=== PATIENT | male | born 1995 | race American Indian/Alaskan Native ===

== ENCOUNTER 2020-10-16 06:12 | Emergency (ER) | payer SELFPAY ==
[2020-10-16 06:53] VITALS: BP 141/83
--- NOTE | 2020-10-16 06:56 | Event Note ---
ED Screening Note Date of service: 10/16/20 Time: 06:55 ED Screening Note: Patient 25-year-old -[place] male with history of schizophrenia, states out of medication, denies SI or HI. This initial assessment/diagnostic orders/clinical plan/treatment(s) is/are subject to change based on patients health status, clinical progression and re- assessment by fellow clinical providers in the ED. Further treatment and workup at subsequent clinical providers discretion. Patient/guardian urged not to elope from the ED as their condition may be serious if not clinically assessed and managed. Initial orders include: ed psych , psych consult, uds, ua, bmp, cbc,
[2020-10-16 07:27] LABS: Basophils # (Auto) 0.1 K/mm3 (0.0-0.1); Basophils % (Auto) 1.1 % (0.0-1.8); Eosinophils % (Auto) 0.6 % (0.0-4.3); Lymphocytes # (Auto) 2.6 K/mm3 (1.2-5.4); Lymphocytes % (Auto) 38.2 % (13.4-35.0); Mean Corpuscular HGB Conc 36 % (32-34); Mean Corpuscular Volume 88 fl (84-94); Monocytes # (Auto) 0.4 K/mm3 (0.0-0.8); Monocytes % (Auto) 6.4 % (0.0-7.3); Platelet Count 263 K/mm3 (140-440); Red Blood Count 4.63 M/mm3 (3.65-5.03); Red Cell Distribution Width 13.3 % (13.2-15.2)
[2020-10-16 07:35] LABS: BUN/Creatinine Ratio 14; Blood Urea Nitrogen 17 mg/dL (9-20); Calcium 9.4 mg/dL (8.4-10.2); Hemolysis Index 4
[2020-10-16 08:01] LABS: Hematocrit 40.7 % (35.5-45.6); Hemoglobin 14.8 gm/dl (11.8-15.2)
--- NOTE | 2020-10-16 09:42 | Consultation ---
History of Present Illness - Reason for Consult Consult date: 10/16/20 Reason for consult: MHE Requesting physician: NICKY ASKEW - History of Present Psychiatric Illness Per ED Provider: Patient 25-year-old -[place] male with history of schizophrenia, states out of medication, denies SI or HI. This initial assessment/diagnostic orders/clinical plan/treatment(s) is/are subject to change based on patients health status, clinical progression and re- assessment by fellow clinical providers in the ED. Further treatment and workup at subsequent clinical providers discretion. Patient/guardian urged not to elope from the ED as their condition may be serious if not clinically assessed and managed. PSYCH HPI Patient describes a good and stable mood, denies being depressed or excessively nervous. Patient eats and sleeps well. Patient denies panic attacks, recurrent nightmares or flashbacks. Patient denies symptoms suggestive of OCD or PTSD. Patient denies hallucinations, paranoia, thought interference and no features suggestive of hypomania or susan. Patiently completely denies suicidal or homi cidal thoughts. PAST PSYCHIATRIC HISTORY Diagnoses: Suicide attempts or Self-harm behavior: Prior psychiatric hospitalizations: Substance Abuse history: Previous psychiatric medications tried: Outpatient treatment: PAST MEDICAL HISTORY: Family Psychiatric History: None reported or documented SOCIAL HISTORY Marital Status: Living Arrangements: Employment Status: Access to guns/weapons: Education: History of Abuse: Legal History: REVIEW OF SYSTEMS ROS cannot be reliably obtained from the patient due to her confusion and somnolence. REVIEW OF SYSTEMS Constitutional: Negative for weight loss ENT: Negative for stridor Respiratory: Negative for cough or hemoptysis All other systems reviewed and are negative MENTAL STATUS EXAMINATION General Appearance and Behavior: Age appropriate, poor/fair/good hygiene, wearing appropriate clothes, lying in bed, good/poor eye contact, cooperative/ uncooperative polite/irritable with questioning. Cooperation: Participating/engaged, Withdrawn, Isolative, Threatening, Cooperative, Hostile and Guarded Psychomotor Behavior: Psychomotor agitation, psychomotor retardation, unremarkable and within normal limits Mood: Good, OK, Anxious, Depressed, Great, I don't know and so-so Affect and affective range: Angry, anxious, constricted, decreased range, depressed, dysthymic, euphoric, euthymic, irritable, labile and sad Thought Process: Fluent/Logical, Tangential, Circumstantial, Perseverative, Illogical, Goal-directed, Rambling, Pressured, Blocked, Fragmented and Loose associations Thought Content: Within reality, Poverty, Obsessions, Flight of ideas, Illogical, Grandiose, Phobia Paranoid, Ideas of reference, Hallucinations including auditory, visual, tactile and olfactory, Hopelessness, Helplessness, Phobia and Paranoid Speech: Normal volume, Regular rate and rhythm, pressured, loud volume, soft volume, stutter, paucity of speech, difficulty to understand, abnormalities in production of speech, confused and blocking Intellectual Functioning: Average Suicidal Ideation: Denies SI/Suicidal Homicidal Ideation: Denies HI/Homicidal Impulse Control: Impaired/Unimpaired Insight and Judgment: Normal insight and judgment, Limited insight and judgment, Impaired Memory: Normal, Short term memory intact, Short term memory impaired, tank terminal gauger memory intact, tank terminal gauger memory impaired, Prospective memory intact and Prospective memory impaired Attention: Normal, Distractible, Sustained attention intact, Sustained attention impaired, Divided attention intact and Divided attention impaired Orientation: Alert, oriented, anxious, confused, delirious and demented Diagnoses: Treatment Plan MEDICATIONS: Risks, benefits and alternatives of medications discussed with the patient, questions answered and consent obtained from patient. PSYCHOTHERAPY: Supportive psychotherapy provided MEDICAL: Per primary team DELIRIUM PRECAUTIONS: Please re-orient patient frequently, keep lights on during the day, and minimize benzodiazepines and opiates as these medications could worsen patient's confusion. COMPUTER METHODS ANALYST: DISPOSITION: Do? Do Not Recommend acute inpatient psychiatric hospitalization at this time. Case discussed with Dr. Miller who agrees with current disposition LEGAL STATUS: 1013 FOLLOW-UP: Will follow Thank you for the consult. Please contact with any questions and/or concerns. Medications and Allergies Allergies Allergy/AdvReac Type Severity Reaction Status Date / Time Unable to Assess Allergy Unverified 10/16/20 06:53 Mental Status Exam - Vital signs Last Vital Signs Temp 99.2 F 10/16/20 06:46 Pulse 97 H 10/16/20 06:46 Resp 18 10/16/20 06:46 BP 141/83 10/16/20 06:46 Pulse Ox 98 10/16/20 06:46 Results Result Diagrams: 10/16/20 07:02 10/16/20 07:02 Abnormal lab results 10/16/20 10/16/20 10/16/20 Range/Units 07:02 07:02 07:02 MCHC 36 H (32-34) % Lymph % (Auto) 38.2 H (13.4-35.0) % Salicylates < 0.3 L (2.8-20.0) mg/dL Acetaminophen 5.0 L (10.0-30.0) ug/mL All other labs normal.
== END 2020-10-16 07:55 ==
LOC: ED 06:12
DX: Z53.21 Procedure and treatment not carried out due to patient leaving prior to being seen by health care provider (principal)
CPT/HCPCS: 36415; 80048; 80185; 80320; 84443; 85025; G0480